=== PATIENT | male | born 1940 | race African-American/Black ===

== ENCOUNTER 2017-04-28 08:23 | Emergency (ER) | payer MEDICARE ==
[~2017-04-28] VITALS: Ht 172.7 cm; Wt 70.0 kg
[2017-04-28] MEDS ORDERED: LIDOCAINE HCL 1% 20ML VIAL (Pyxis) INJ MC ONE (10:30)
[2017-04-28] MEDS ORDERED: TETANUS, DIPHTHERIA, PERTUSSIS VAC/PF 0.5ML (>7YR OLD) IM ONE (10:30)
[2017-04-28 10:41] VITALS: BP 152/86
== END 2017-04-28 11:19 | disposition home or self-care (01) ==
LOC: ER 08:36
DX: S01.01XA Laceration without foreign body of scalp, initial encounter (principal); I10 Essential (primary) hypertension; Y00.XXXA Assault by blunt object, initial encounter; Y93.89 Activity, other specified; Y92.488 Other paved roadways as the place of occurrence of the external cause
CPT/HCPCS: 12002; 90471; 90715; 99283; J3490

== ENCOUNTER 2017-05-20 09:26 | Emergency (ER) | payer MEDICARE ==
[~2017-05-20] VITALS: Ht 170.2 cm; Wt 66.0 kg
[2017-05-20 13:45] VITALS: BP 157/96
== END 2017-05-20 14:34 | disposition home or self-care (01) ==
LOC: ER 10:46
DX: Z48.02 Encounter for removal of sutures (principal); Z48.00 Encounter for change or removal of nonsurgical wound dressing
CPT/HCPCS: 99281

== ENCOUNTER 2017-10-29 17:05 | Emergency (ER) | payer MEDICARE ==
[~2017-10-29] VITALS: Ht 170.2 cm; Wt 46.0 kg
[2017-10-29 19:12] LABS: HEMATOCRIT. 36.2 % (42.0-52.0); HEMOGLOBIN. 11.9 g/dL (14.0-18.0); MEAN CORPUSCULAR VOLUME 88.6 fL (80.0-94.0); PLATELET 236 x1000/uL (130-400); RED BLOOD CELL COUNT 4.09 mill/uL (4.7-6.1); RED CELL DISTRIBUTION WIDTH 13.5 % (11.6-14.6)
[2017-10-29 19:17] LABS: CHLORIDE 100 mEq/L (98-107)
[2017-10-29 19:18] LABS: PROTHROMBIN TIME 10.7 sec (9.4-11.6)
[2017-10-29] MEDS ORDERED: SODIUM CHLORIDE 0.9% 1,000 ML IV ONE (19:24)
[2017-10-29] MEDS ORDERED: ONDANSETRON HCL 4MG/2ML VIAL IV STA (19:24)
[2017-10-29] MEDS ORDERED: MORPHINE SULFATE 4 MG/ML CPJ (NOT FOR IM USE) IV STA (19:24)
[2017-10-29 21:00] LABS: PLATELET ESTIMATE NORMAL
[2017-10-29 22:52] LABS: CLARITY URINE CLEAR (CLEAR); COLOR URINE YELLOW (YELLOW); KETONES URINE TRACE (NEGATIVE); LEUKOCYTE ESTERASE URINE 1+ (NEGATIVE); NITRITE URINE NEGATIVE (NEGATIVE); OCCULT BLOOD URINE NEGATIVE (NEGATIVE); PROTEIN URINE NEGATIVE (NEGATIVE); SPECIFIC GRAVITY URINE 1.024 (1.005-1.030)
[2017-10-30] MEDS ORDERED: ONDANSETRON HCL 4MG/2ML VIAL IV ONE (00:30)
[2017-10-30 02:35] VITALS: BP 140/50
== END 2017-10-30 02:59 | disposition home or self-care (01) ==
LOC: ER 17:05
DX: R10.33 Periumbilical pain (principal); R11.2 Nausea with vomiting, unspecified; F17.200 Nicotine dependence, unspecified, uncomplicated
CPT/HCPCS: 36415; 74176; 80053; 81003; 83690; 85025; 85610; 96361; 96374; 96375; 99285; J2270; J2405; J7030